=== PATIENT | male | born 2000 | race Caucasian/White ===

== ENCOUNTER 2019-01-24 22:06 | Emergency (ER) | payer BC, OTHER ==
[~2019-01-24] VITALS: Ht 170.2 cm; Wt 83.9 kg
--- NOTE | 2019-01-24 22:22 | ED Upper Extremity ---
General Stated Complaint: LT HAND, FINGER LAC Source: patient History of Present Illness Date Seen by Provider: Jan 24, 2019 Time Seen by Provider: 22:22 Initial Comments 19-year-old male that identifies as female presents with a laceration to the left index finger. She states that she was trying to cut a tree branch and cut too far going into her left finger. She is right-hand dominant. The cut is over the proximal phalanx and extends on part of the PIP joint. There is no loss of sensation. There is normal range of motion. There is normal capillary refill. Patient states the last tetanus shot was unknown but did go to public school so it would've been approximately 5 years ago going into high school. No previous complications with getting Novocain for dental work so there should be no problem with using lidocaine for anesthetic on the finger. No other injuries. No obvious foreign bodies. Onset: just prior to arrival Allergies and Home Medications Allergies Coded Allergies: No Known Drug Allergies (Unverified , 01/24/19) Home Medications Cephalexin 500 Mg Tablet, 500 MG PO TID Prescribed by: LULÚ MEJÍA on 01/24/19 3361 Patient Home Medication List Home Medication List Reviewed: Yes Review of Systems Constitutional: no symptoms reported EENTM: no symptoms reported Respiratory: no symptoms reported Cardiovascular: no symptoms reported Gastrointestinal: no symptoms reported Genitourinary: no symptoms reported Musculoskeletal: see HPI Skin: see HPI Psychiatric/Neurological: No Symptoms Reported Past Vilkkoe-Mysxvs-Romzwr Hx Past Med/Social Hx: Reviewed Nursing Past Med/Soc Hx Patient Social History Recent Foreign Travel: No Contact w/Someone Who Travel: No Physical Exam Vital Signs Vital Signs - First Documented 01/24/19 22:10 Temp 98.5 Pulse 73 Resp 20 B/P (MAP) 129/76 (93) Pulse Ox 97 O2 Delivery Room Air Capillary Refill : Height, Weight, BMI Height: '" Weight: lbs. oz. kg; BMI Method: General Appearance: WD/WN, no apparent distress Cardiovascular: normal peripheral pulses, regular rate, rhythm Hand: Left, laceration (3.2 cm laceration to the left index finger over the proximal phalanx. There is normal range of motion. There is no foreign body s een. There is no crepitus. There is mild tenderness of the laceration site.) Neurologic/Psychiatric: no motor/sensory deficits, alert, oriented x 3 Skin: normal color, warm/dry Procedures/Interventions Wound Location: Upper Extremities (left index finger proximal phalanx extending over the PIP joint) Wound Length (cm): 3.2 Wound's Depth, Shape: sub Q Wound Explored: clean Anesthesia: 1% Lidocaine (digital block) Volume Anesthetic (ccs): 5 Suture: Ethlion Suture Size: 4-0 Number of Sutures: 6 Layer Closure?: 1 Sterile Dressing Applied?: Yes Progress After obtaining verbal consent from the patient the finger was anesthetized with a digital block using 1% plain lidocaine. Then the wound was cleaned with chlorhexidine surgical soap and sterile water. A large turnicot was used to help obtain hemostasis and prolong the anesthetic. The wound was explored and there is no foreign body seen. There is no definite tendon laceration. The wound did appear to extend down towards the joint but did not appear to disrupt the joint capsule itself. The wound was repaired with 6 simple interrupted 4-0 Ethilon stitches. The wound edges were well approximated. The patient tolerated this well without any immediate complications. The turnicot was on for a total of 33 minutes. Progress/Results/Core Measures Results/Orders My Orders Orders - LULÚ MEJÍA MD Lidocaine 1% Inj 20 Ml (Xylocaine 1% Inj (01/24/19 22:30) Cephalexin Capsule (Keflex Capsule) (01/24/19 23:37) Lidocaine 1% Inj 20 Ml (Xylocaine 1% Inj (01/24/19 23:37) Wound Dressing-Ed (01/24/19 23:38) Vital Signs/I&O 01/24/19 01/24/19 22:10 23:57 Temp 98.5 98.5 Pulse 73 73 Resp 20 20 B/P (MAP) 129/76 (93) 129/76 (93) Pulse Ox 97 97 O2 Delivery Room Air Progress Progress Note : Progress Note Patient's was verbally consented for laceration repair of the finger. Will place on a short course of cephalexin since the laceration does extend up over a joint. Counseled on follow-up and return precautions. Advised to have the stitches removed in 10-14 days or be seen sooner if concerns for infection. Departure Impression Primary Impression: Laceration of left index finger w/o foreign body w/o damage to nail Qualified Codes: S61.211A - Laceration without foreign body of left index finger without damage to nail, initial encounter Disposition: 01 HOME, SELF-CARE Condition: Stable Departure-Patient Inst. Decision time for Depature: 23:50 Referrals: CL CHAUHAN MD (PCP) Primary Care Physician Patient Instructions: Laceration Repair With Stitches (DC) Add. Discharge Instructions: keep wound clean and dry for first 24 hours, then may remove dressing and wash normally but do not soak it. No swimming or pools until after stitches are removed in 10 to 14 days. Be seen sooner if you have concerns for infection such as pus draining from wound, redness streaking up your finger and hand, or fever over 101 F. Take the full course of antibiotics to try and help prevent infection in the finger since the cut was right over your joint. Apply antibiotic ointment 2 to 3 times a day as needed to help prevent infection and cover the wound if it might get dirty. Scripts Cephalexin (Cephalexin) 500 Mg Tablet 500 MG PO TID for 7 Days, #20 TAB 0 Refills Prov: LULÚ MEJÍA MD 01/24/19 LULÚ MEJÍA MD Jan 24, 2019 22:22
[2019-01-24] MEDS ORDERED: LIDOCAINE 1% INJ 20 ML 20 ML VIAL ONE (22:30)
[2019-01-24] MEDS ORDERED: LIDOCAINE 1% INJ 20 ML 20 ML VIAL INJ STA (23:37)
[2019-01-24] MEDS ORDERED: CEPHALEXIN 250 MG (KEFLEX) CAP PO STA (23:37)
[2019-01-24] MEDS ORDERED: CEPH500T PO (23:54)
[2019-01-24 23:57] VITALS: BP 129/76
== END 2019-01-24 23:57 | disposition home or self-care (01) ==
LOC: EDSEX 22:09 → ER FS 22:09
DX: S61.211A Laceration without foreign body of left index finger without damage to nail, initial encounter (principal); W26.8XXA Contact with other sharp object(s), not elsewhere classified, initial encounter
CPT/HCPCS: 12001

== ENCOUNTER → 2022-12-08 | Outpatient (CLI) | payer BC ==
[~2022-12-08] MED LIST: CEPH500T PO
--- NOTE | 2022-12-08 15:43 | Diagnostic Imaging Report ---
PROCEDURE: MR imaging of the brain without contrast. TECHNIQUE: Multiplanar, multisequence MR imaging of the brain was performed without contrast. INDICATION: Headaches. Status post recent fall. COMPARISON: None FINDINGS: The ventricles and the cortical sulci age-appropriate. There is no midline shift or mass effect identified. There is no acute infarction. No intraparenchymal or extraaxial hemorrhage or fluid collection is identified. There is no focal parenchymal abnormality seen. There is no focal mass seen. The midline craniocervical anatomy is unremarkable. The major expected intracranial flow voids are seen. There are no focal calvarial lesions. The visualized paranasal sinuses are unremarkable. The mastoid air cells are clear. IMPRESSION: 1. No acute intracranial abnormalities. No acute infarction, acute intra-axial hemorrhage or focal intra-axial mass. Dictated by: Dictated on workstation # [id number]
== END ==
LOC: RAD 13:29
PROVIDERS: ATTEND Family Medicine
DX: G44.52 New daily persistent headache (NDPH) (principal)
CPT/HCPCS: 70551